=== PATIENT | female | born 1980 | race Caucasian/White ===

== ENCOUNTER 2016-04-04 15:20 | Emergency (ER) | END 2016-04-04 18:21 | disposition home or self-care (01) | DX: J20.9 Acute bronchitis, unspecified (principal) | CPT/HCPCS: 71010; Z7502 ==

== ENCOUNTER 2016-04-14 12:28 | Emergency (ER) | payer BC ==
[~2016-04-14] VITALS: Wt 76.0 kg
[~2016-04-14 12:28] MED LIST: AZIT250T94 PO; CLOT30CR24 TOP; D-ME473S8 PO; FIORICET PO; GUAI-47 PO; IBUP-1542 PO; NITR-58 PO; ONDA4TAB35 PO; RANI150T9 PO
[2016-04-14] MEDS ORDERED: BEN25 PO (15:05)
[2016-04-14] MEDS ORDERED: FAMO-18 PO (15:05)
--- NOTE | 2016-04-14 15:29 | ERD ---
ER Documentation Chief Complaint Date/Time DATE: 04/14/16 TIME: 15:21 Chief Complaint rash and fever since last night .no stridor or signs of sob. HPI 35 year old female comes in with a rash and fever that started last night, she also reports loose stools and epigastric abdominal pain. 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 Patient has tried taking Motrin for this, no other medications. Last night she had some epigastric pain and some loose stools. She denies new foods, medications, lotions and creams. She denies URI symptoms, denies sore throat. ROS All systems reviewed and are negative except as per history of present illness. Medications Home Meds Active Scripts Famotidine* (Pepcid*) 20 Mg Tablet, 20 MG PO BID for 4 Days, TAB Prov:CHEN MABRY PA-C 04/14/16 Diphenhydramine Hcl* (Benadryl*) 25 Mg Cap, 25 MG PO Q6, #30 CAP Prov:CHEN MABRY PA-C 04/14/16 Promethazine/Dextromethorphan (Promethazine-Dm Solution) 473 Ml Syrup, 10 ML PO Q6, #120 Prov:STEPHANIE LOGAN MD 04/04/16 Azithromycin* (Zithromax*) 250 Mg Tablet, 250 MG PO .ZPACK DIRECTED, #6 TAB TAKE 500 MG (2 TABS) THE FIRST DAY THEN 250 MG (1 TAB) DAYS 2-5 Prov:STEPHANIE LOGAN MD 04/04/16 Acetamin/Butalbital/Caffeine* (Fioricet*) 1 Tab Tab, 1 TAB PO Q4H Y for PAIN LEVEL 1-5, #20 TAB Prov:BRANDAN JIMENEZ PA-C 08/22/15 Guaifenesin-Dextromethorphan* (Mucinex* DM) 600-30 Mg Tabsr, 1 TAB PO Q12, #14 TAB Prov:OVIDIO GIRON MD 01/13/15 Ibuprofen* (Motrin*) 600 Mg Tab, 600 MG PO Q6H Y for PAIN, #14 TAB Prov:OVIDIO GIRON MD 01/13/15 Azithromycin* (Zithromax*) 250 Mg Tablet, 250 MG PO .ZPACK DIRECTED, #6 TAB TAKE 500 MG (2 TABS) THE FIRST DAY THEN 250 MG (1 TAB) DAYS 2-5 Prov:OVIDIO GIRON MD 01/13/15 Clotrimazole* (Clotrimazole* AF) 1% - 30 Gm Cream.gm., 1 APPLIC TOP BID for 7 Days, TUB Prov:LUZ MARINA PATTERSONQUANG Barakat 12/23/14 Nitrofurantoin Monohyd Macrocr* (Macrobid*) 100 Mg Capsr, 100 MG PO HS for 7 Days Prov:LUZ MARINA PATTERSONQUANG Barakat 10/09/14 Ondansetron Hcl* (Zofran* ODT) 4 mg -ODT Tab.disper, 4 MG PO Q6 Y for NAUSEA AND /OR VOMITING, #10 TAB Prov:LUZ MARINA PATTERSONQUANG Barakat 10/09/14 Ranitidine Hcl* (Zantac*) 150 Mg Tablet, 150 MG PO BID Y for acid, #30 TAB Prov:AMBERLY PATTERSON Yuval 10/09/14 Allergies Allergies: Coded Allergies: No Known Allergy (Unverified , 08/22/15) PMhx/Soc History of Surgery: No Anesthesia Reaction: No Hx Neurological Disorder: Yes (migraine) Hx Respiratory Disorders: No Hx Cardiac Disorders: No Hx Psychiatric Problems: No Hx Miscellaneous Medical Probl: Yes (DEAF & MUTE) Hx Alcohol Use: No Hx Substance Use: No Hx Tobacco Use: No Smoking Status: Never smoker Physical Exam Vitals Vital Signs Date Time Temp Pulse Resp B/P Pulse Ox O2 Delivery O2 Flow Rate FiO2 04/14/16 12:50 98.0 89 20 150/91 98 Physical Exam General: Well-developed, well-nourished. The patient appears in no acute distress. HEENT: Head is normocephalic, atraumatic. No scleral icterus. Pupils are equal , round, and reactive. Oral mucous membranes are moist. No pharyngeal erythema. No exudate. Neck: Supple. Nontender. Lungs: Clear to auscultation. Normal air movement. Heart: Regular rate and rhythm. S1 and S2 are normal. No murmurs, gallops, or rubs. Abdomen: Soft, nontender, nondistended. Bowel sounds are normoactive. Extremities: No clubbing or cyanosis. Normal pulses. Moving extremities x 4. No weakness. Neurologic: Alert and oriented 3. No focal deficits. Skin: Scattered macular rash, slightly vesicular inserted lesions, palms and soles of the feet are clear. Rashes blanchable. Results 24 hrs Current Medications Medications (Trade) Dose Ordered Sig/Yohan Route PRN Reason Start Time Stop Time Status Last Admin Dose Admin Diphenhydramine HCl (Benadryl) 25 mg ONCE ONCE PO 04/14/16 15:30 04/14/16 15:31 04/14/16 15:16 Famotidine (Pepcid) 20 mg ONCE ONCE PO 04/14/16 15:30 04/14/16 15:31 04/14/16 15:16 Procedures/MDM Patient was given benadryl for itching, and pepcid for the epigastric abdominal pain. 35-year-old female presents with tactile fevers, loose stools and a rash for the past day, patient's rash appears to be a viral exanthem. No signs of meningitis, systemic infection, bacterial infection, Scarlet fever. She is well appearing, nontoxic and will be discharged. Suspicion for pancreatitis, acute hepatobiliary process is low. Departure Diagnosis: Primary Impression: Rash Condition: Good Patient Instructions: Viral Rash, Exanthem (Child) Additional Instructions: Call your primary care doctor TOMORROW for an appointment during the next 1-2 days.See the doctor sooner or return here if your condition worsens before your appointment time. CHEN MABRY PA-C Apr 14, 2016 15:29
[2016-04-14] MEDS ORDERED: DIPHENHYDRAMINE 25 MG CAP PO ONE (15:30)
[2016-04-14] MEDS ORDERED: FAMOTIDINE 20 MG TAB PO ONE (15:30)
[2016-04-14 16:47] VITALS: BP 132/68
== END 2016-04-14 16:48 | disposition home or self-care (01) ==
LOC: FTE 12:28
DX: R21 Rash and other nonspecific skin eruption (principal)
CPT/HCPCS: Z7502; Z7610; 99283

== ENCOUNTER 2017-09-24 14:39 | Emergency (ER) | END 2017-09-24 20:41 | disposition home or self-care (01) ==

== ENCOUNTER 2017-11-21 13:04 | Emergency (ER) | END 2017-11-21 14:14 | disposition home or self-care (01) ==